=== PATIENT | female | born 1965 | race Caucasian/White ===

== ENCOUNTER 2016-09-24 05:55 | Day surgery (SDC) | payer BC ==
[2016-09-16 17:38] LABS: BASOPHILS 0.2 %; BASOPHILS ABSOLUTE 0.01 10/3/uL (0.0-0.16); EOSINOPHILS 1.6 %; HEMOGLOBIN 13.8 g/dL (12.0-16.0); IMMATURE GRANULOCYTES 0.2 %; IMMATURE GRANULOCYTES ABSOLUTE 0.01 10/3/uL (0.0-0.11); LYMPHOCYTES 22.4 %; LYMPHOCYTES ABSOLUTE 1.41 10/3/uL (0.67-4.30); MEAN CORPUS HGB CONC 34.8 g/dL (32.0-36.0); MEAN CORPUSCULAR HEMOGLOB 30.2 pg (26.0-34.0); MEAN CORPUSCULAR VOLUME 86.7 fL (80-100); MEAN PLATELET VOLUME 9.3 fL (9.2-13.0); MONOCYTES 7.2 %; MONOCYTES ABSOLUTE 0.45 10/3/uL (0.21-1.20); NEUTROPHILS 68.4 %; NEUTROPHILS ABSOLUTE 4.31 10/3/uL (2.02-8.40); PLATELET COUNT 238 10/3/uL (150-400); RBC DISTRIBUTION WIDTH 12.4 % (12.0-16.0); RED CELL COUNT 4.57 10/6/uL (4.0-5.6); WHITE BLOOD CELLS 6.3 10/3/uL (4.5-10.5)
[2016-09-16 17:41] LABS: HEMATOCRIT 39.6 % (36.0-48.0); MANUAL DIFF NO %
[2016-09-16 17:54] LABS: PARTIAL THROMBO TIME 27.5 SEC (22.5-37.2)
[2016-09-16 17:55] LABS: BUN (BLOOD UREA NITROGEN) 19 MG/DL (6-23); CALCIUM, SERUM 9.4 MG/DL (8.5-10.4); CHLORIDE, SERUM 107 MMOL/L (96-112); CO2 (CARBON DIOXIDE) 30 MMOL/L (24-34); CREATININE 0.82 MG/DL (0.55-1.02); GFR AFRICAN AMERICAN 95 ML/MIN (>=60); GFR NON AFRICAN AMERICAN 82 ML/MIN (>=60); GLUCOSE, SERUM 84 MG/DL (60-99); POTASSIUM, SERUM 4.2 MMOL/L (3.5-5.3); SODIUM, SERUM 144 MMOL/L (135-148)
--- NOTE | ~2016-09-24 | OP ---
Record Of Operation [facility] [address] [place]. [address] NAME: ALDEN IBARRA : 63 STATUS : REG [facility] [place] PAT#: [id number] AGE: 51 ADM/REG DATE : 09/24/16 MR#: [id number] REPORT SERV DATE: 09/24/16 DICTATED BY: NIK CUELLAR DATE: 09/24/16 REPORT STATUS : Draft TRANSCRIBED BY: MODL DATE: 09/24/16 DATE OF PROCEDURE: 09/24/2016 PREOPERATIVE DIAGNOSIS: Substernal right thyroid nodule 4.5 cm with esophageal compression. POSTOPERATIVE DIAGNOSIS: Substernal right thyroid nodule 4.5 cm with esophageal compression. PROCEDURE PERFORMED: Right thyroid lobectomy with isthmusectomy. SURGEON: Nik Cuellar M.D. COST ACCOUNTING MANAGER: April Tamez. ANESTHESIA: General. COMPLICATIONS: None. CONDITION: Stable to recovery. INDICATIONS: 51-year-old female, with enlarging right thyroid nodule, and compressive symptoms, and compressive imaging findings. The risks, benefits, and alternatives to right thyroid lobectomy, and possible total thyroidectomy were explained and she agreed. PROCEDURE IN DETAIL: The patient was identified in preoperative holding, taken back to the operating room, and placed supine on the operating room table. General anesthesia was established with a nerve integrity monitoring system endotracheal tube. A time-out was called, the patient and procedure were confirmed. Initially, a preexisting skin crease in the anterior neck was marked with a surgical ink pen and infiltrated subcutaneously with 4 mL of 1% lidocaine with 1:100,000 epinephrine. She was then prepped and draped in a standard fashion for the operation. The anterior tap test was positive confirming the appropriate placement of the nerve monitoring endotracheal tube. This was also placed using a GlideScope. Using 2.5x loupe magnification and headlight illumination, the operation commenced. A 15 blade was used to make the skin incision down through the skin and subcutaneous tissue, and platysma. Subplatysmal flaps were elevated superiorly and inferiorly and strap muscles were divided in the midline. The thyroid isthmus and right thyroid lobe were mobilized, dissecting the sternohyoid and sternothyroid strap muscles off the gland. There was a firm area in the isthmus right inferior lobe that was extending down into the retrosternal area. There was also a large area of cystic degeneration superiorly. The cricothyroid space was identified and mobilized. A Glasford clamp was placed on the upper pole of the right lobe and retracted inferiorly. Two medium hemoclips were placed on the superior thyroid artery and vein on the patient's side and Harmonic scalpel on the thyroid side. The gland was mobilized out of the visceral compartment. The recurrent laryngeal nerve was identified in the tracheoesophageal groove and confirmed with the nerve stimulating probe. The parathyroids upper and lower were both identified and preserved. The gland was rotated off Record Of Operation [facility] [address] [facility] [address] [place]. [address] NAME: ALDEN IBARRA : 63 STATUS : REG [facility]#: [id number] AGE: 51 ADM/REG DATE : 09/24/16 MR#: [id number] REPORT SERV DATE: 09/24/16 DICTATED BY: NIK CUELLAR DATE: 09/24/16 REPORT STATUS : Draft TRANSCRIBED BY: MODL DATE: 09/24/16 the Bora's ligament. Anterior trachea was taken across to the attachment to the left thyroid lobe. It was transected here with Harmonic scalpel, and sent for frozen section analysis. Frozen section analysis showed no evidence of papillary thyroid cancer or other suspicious findings of a malignancy. The left lobe was much smaller than the right lobe and had some areas of multinodular change, but it was left in place given the extent of dissection on the right side. This was a large right-sided lobe with nodules and the parathyroid glands were identified and preserved, but partially ischemic at the end of the case. The recurrent laryngeal nerve was also somewhat adherent to the posterior aspect of the gland, although, it stimulated well at the end of the case. We did have to dissect along the nerve to get that to reflect it off the gland. The decision was made to hold off on removing the left thyroid lobe, given the findings and the low risk of malignancy there, and a chance for her to not have to go on thyroid hormone medication going forward. The wound was irrigated copiously with saline. Bipolar cautery was used for hemostasis. Surgicel was placed in the right paratracheal space and along the isthmus, and then the wound was closed in layers, closing the strap muscles initially with 3-0 interrupted Vicryl suture leaving a space inferiorly for serous fluid and blood, and the platysma was closed with 3-0 Vicryl suture, followed by 5-0 running Monocryl and Steri-Strips. The patient was awakened and taken to recovery in stable condition. PH/MODL Nik Cuellar M.D. / [id number] CC: Zeyad Sanchez D.O.
[~2016-09-24 05:55] MED LIST: COZ50 PO; EFFEX37.5 PO; EFFEXXR75 PO; MOBIC7.5 PO; PRIN20 PO; ZANTAC150 MG PO; ZOCOR40 PO
[2016-09-24 08:08] LABS: PTH (INTRAOPERATIVE) 27.8 PG/ML (10.0-65.0); PTH TAT 0 Hrs 18 Mins
== END 2016-09-24 12:34 | disposition home or self-care (01) ==
LOC: SDC 05:55
PROVIDERS: Specialist
PROC: 0GTH0ZZ Resection of Right Thyroid Gland Lobe, Open Approach (ICD-10-PCS; principal; 2016-09-24 06:45)
DX: E04.2 Nontoxic multinodular goiter (principal); I10 Essential (primary) hypertension; M19.90 Unspecified osteoarthritis, unspecified site; K21.9 Gastro-esophageal reflux disease without esophagitis; Z88.0 Allergy status to penicillin; Z88.2 Allergy status to sulfonamides; Z88.1 Allergy status to other antibiotic agents; Z85.3 Personal history of malignant neoplasm of breast; Z90.49 Acquired absence of other specified parts of digestive tract; Z90.13 Acquired absence of bilateral breasts and nipples; Z98.890 Other specified postprocedural states
CPT/HCPCS: 71020; 80048; 83970; 85025; 85730; 88307; 88311; 88331; 88342; 93005; A9270-GY; J0690; J1200; J2250; J2370; J2405; J2710; J3010